=== PATIENT | female | born 1955 | race African-American/Black ===

== ENCOUNTER 2016-11-30 21:20 | Emergency (ER) | payer OTHER ==
[~2016-11-30] VITALS: Ht 124.5 cm; Wt 52.2 kg
--- NOTE | ~2016-11-30 | EKG ---
[place] [address] [facility] [place] [address] ELECTROCARDIOGRAM REPORT Name: MOISE FLORES Room #: STEVEN Sands#: [id number] Admission: 11/30/16 Attend Phys: Discharge: 12/01/16 Date of : 51 Report #: [id number] THIS REPORT FOR: //name// [facility] ED Test Date: 2016-11-30 Test Time: 21:29:45 Pat Name: MOISE FLORES Department: Room: Gender: F Hyperbaric Tech: jenny : 1955 Requested By: Megan Vazquez Order Number: [id number] MD: Pierre Glynn Measurements Intervals [place] Rate: 68 P: 68 GA: 129 QRS: -31 QRSD: 96 T: 48 QT: 407 QTc: 433 Interpretive Statements Sinus rhythm Left axis deviation No previous ECG available for comparison Electronically Signed On 12-01-2016 8:10:33 CDT by Pierre Glynn [email or web address] <ELECTRONICALLY SIGNED> By: Pierre Glynn MD, [facility] 12/01/16 0810 2129 Pierre Glynn MD, FACC /EPI
[2016-11-30] MEDS ORDERED: VASOTEC10 MG PO (21:32)
[2016-11-30 22:02] LABS: HEMATOCRIT 34.9 % (37.0-47.0); MANUAL DIFF YES; MCH 31.7 pg (26.0-34.0); MCHC 34.4 g/dL (28.0-37.0); PLATELET COUNT 250 thou/uL (150-400); RBC 3.79 mil/uL (4.20-5.00); RDW 13.2 % (10.5-14.5); WBC 4.9 thou/uL (4.0-11.0)
[2016-11-30 22:09] LABS: CALCIUM 8.9 mg/dL (8.5-10.1); CREATININE 0.8 mg/dL (0.6-1.0); POTASSIUM 3.8 mmol/L (3.5-5.1)
[2016-11-30 22:17] LABS: TROPONIN-I 0.06 ng/mL (<0.04-0.07)
[2016-11-30 22:18] LABS: ABSOLUTE NEUTROPHILS 0.9 thou/uL (1.4-8.2); ANISOCYTOSIS 2+; POLYCHROMASIA OCCASIONAL; TOTAL CELL COUNT 100
[2016-12-01] MEDS ORDERED: PROAIR HFA8.5 GM INH (00:23)
[2016-12-01] MEDS ORDERED: TESSALON PERLE100 MG PO (00:23)
[2016-12-01 00:40] VITALS: BP 150/89
== END 2016-12-01 00:40 | disposition home or self-care (01) ==
LOC: ER 21:20
PROVIDERS: Emergency Medicine
DX: J06.9 Acute upper respiratory infection, unspecified (principal); R07.89 Other chest pain; F10.20 Alcohol dependence, uncomplicated; I10 Essential (primary) hypertension; E78.00 Pure hypercholesterolemia, unspecified

== ENCOUNTER 2017-04-16 07:09 | Emergency (ER) | payer OTHER ==
[~2017-04-16] VITALS: Ht 149.9 cm; Wt 50.8 kg
--- NOTE | ~2017-04-16 | EKG ---
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 PADILLA : 1955 Requested By: Alexander Bone Order Number: [id number] MD: Be De Guzman Measurements Intervals [place] Rate: 76 P: 55 AL: 158 QRS: -50 QRSD: 95 T: 34 QT: 408 QTc: 459 Interpretive Statements Sinus rhythm Probable left atrial enlargement LAD, consider left anterior fascicular block Left ventricular hypertrophy Anterior ST elevation, probably due to LVH Compared to ECG 04/16/2017 07:16:39 Left ventricular hypertrophy now present ST (T wave) deviation now present Atrial premature complex(es) no longer present Left-axis deviation no longer present Electronically Signed On 04-16-2017 14:07:24 AIRPLANE CAPTAIN by Be De Guzman [email or web address] <ELECTRONICALLY SIGNED> By: Be De Guzman MD 04/16/17 1407 [id number] Be De Guzman MD /EPI
--- NOTE | ~2017-04-16 | EKG ---
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 : 1955 Requested By: Alexander Bone Order Number: [id number] MD: Marshal Mckee Measurements Intervals [place] Rate: 86 P: 57 CA: 153 QRS: -42 QRSD: 98 T: 35 QT: 385 QTc: 461 Interpretive Statements Sinus rhythm Atrial premature complex Left atrial enlargement Left axis deviation Compared to ECG 11/30/2016 21:29:45 Atrial premature complex(es) now present Atrial abnormality now present Electronically Signed On 04-16-2017 11:26:16 SHOULDER JOINER by Marshal Mckee [email or web address] <ELECTRONICALLY SIGNED> By: Marshal Mckee MD 04/16/17 1126 0716 5 MD EITAN Augilar
[~2017-04-16 07:09] MED LIST: PROAIR HFA8.5 GM INH; TESSALON PERLE100 MG PO; VASOTEC10 MG PO
[2017-04-16] MEDS ORDERED: NAPROSYN500 MG PO (07:23)
[2017-04-16] MEDS ORDERED: HYDROCHLOROTHIA25 M2 PO (07:24)
[2017-04-16] MEDS ORDERED: AMLODIPINE BESY10 MG PO (07:24)
[2017-04-16] MEDS ORDERED: FLEXERIL PO (07:24)
[2017-04-16 07:44] LABS: HEMATOCRIT 41.8 % (37.0-47.0); HEMOGLOBIN 14.1 gm/dL (12.0-15.0); MCH 32.1 pg (26.0-34.0); MCHC 33.9 g/dL (28.0-37.0); MCV 94.7 fL (80.0-100.0); PLATELET COUNT 235 thou/uL (150-400); RBC 4.41 mil/uL (4.20-5.00); RDW 14.7 % (10.5-14.5); WBC 4.7 thou/uL (4.0-11.0)
[2017-04-16 07:48] LABS: ANION GAP 10 mmol/L (7-16); BUN 10 mg/dL (7-18); CALCIUM 9.4 mg/dL (8.5-10.1); CHLORIDE 99 mmol/L (98-107); CO2 28 mmol/L (21-32); CREATININE 0.6 mg/dL (0.6-1.0); GLUCOSE 86 mg/dL (74-106); POTASSIUM 3.6 mmol/L (3.5-5.1); SODIUM 137 mmol/L (136-145)
[2017-04-16 07:56] LABS: TROPONIN-I < 0.04 ng/mL (<0.06)
[2017-04-16 09:00] LABS: ABSOLUTE NEUTROPHILS 2.6 thou/uL (1.4-8.2)
[2017-04-16] MEDS ORDERED: PROTONIX40 M1 PO (09:57)
== END 2017-04-16 11:08 | disposition home or self-care (01) ==
LOC: ER 07:09
PROVIDERS: Emergency Medicine
DX: R07.9 Chest pain, unspecified (principal); I10 Essential (primary) hypertension; E78.00 Pure hypercholesterolemia, unspecified